=== PATIENT | male | born 1955 | race Caucasian/White ===

== ENCOUNTER 2021-03-07 09:25 | Inpatient (IN) | payer BC, SELFPAY ==
[2021-03-07] VITALS (10 sets, daily range): BP systolic 104–115; BP diastolic 61–71; PULSE 69–100; RESP 17–22; TEMP 36.1–36.8; O2SAT 87–96; BMI 30.8; BMI 30.1
--- NOTE | 2021-03-07 09:43 | EKG12_ITS ---
Test Reason : SOB Blood Pressure : / mmHG Vent. Rate : 097 BPM Atrial Rate : 097 BPM P-R Int : 150 ms QRS Dur : 092 ms QT Int : 338 ms P-R-T Axes : 056 -15 052 degrees QTc Int : 429 ms Normal sinus rhythm Inferior PA, age undetermined, cannot be excluded Confirmed by CAMILLE FLORES, ANGELICA ([id number]), development editor CHRISTIAN MYERS ([id number]) on 03/08/2021 7:54:53 AM Referred By: [email or web address] Confirmed By:ANGELICA OBRIEN MD
--- NOTE | 2021-03-07 09:44 | EX.ED.DYSGE1 ---
HPI History of Present Illness Chief Complaint: Shortness of Breath Informant: patient and spouse/S.O. Onset/Context/Timing Onset: Days Context: Gradual Onset Current Severity: Moderate Maximum Severity: Moderate Narrative Narrative: Patient presents secondary to increasing shortness of breath. He has been sick for the last 6 days. He did test positive for Covid on a home test yesterday. Reports some intermittent chest heaviness along with increasing shortness of breath and cough. He has had diarrhea. Patient is being treated for prostate cancer but is currently only on hormonal therapy, no chemotherapy. [facility] Medical History Diabetes Prostate CA Home Medications abiraterone 1,000 mg PO DAILY 03/07/21 [History Last Taken Unknown] amlodipine 5 mg PO DAILY 03/07/21 [History Last Taken Unknown] ascorbic acid (vitamin C) 1 g PO DAILY 03/07/21 [History Last Taken Unknown] benazepril 40 mg PO DAILY 03/07/21 [History Last Taken Unknown] calcium polycarbophil 1,250 mg PO DAILY 03/07/21 [History Last Taken Unknown] gabapentin 300 mg PO TID 03/07/21 [History Last Taken Unknown] metformin 500 mg PO BID 03/07/21 [History Last Taken Unknown] morphine 15 mg PO TID 03/07/21 [History Last Taken Unknown] oxycodone-acetaminophen [Percocet] 1 tab PO Q6H PRN 03/07/21 [History Last Taken Unknown] polyethylene glycol 3350 [Miralax] 17 g PO DAILY 03/07/21 [History Last Taken Unknown] prednisone 5 mg PO BID 03/07/21 [History Last Taken Unknown] solifenacin 5 mg PO DAILY 03/07/21 [History Last Taken Unknown] tamsulosin 0.4 mg PO DAILY 03/07/21 [History Last Taken Unknown] zolpidem [Ambien] 10 mg PO QHS PRN 03/07/21 [History Last Taken Unknown] Allergy/AdvReac Type Severity Reaction Status Date / Time No Known Allergies Allergy Verified 03/07/21 09:28 Social History Smoking Status: Never smoker ROS ROS ED Constitutional Constitutional ED: Reports chills and fever(s) Eyes Eyes: Denies change in vision ENT ENT ED: Denies sore throat Cardiovascular Cardiovascular: Reports chest pain Respiratory/Chest Respiratory/Chest: Reports cough and dyspnea Gastrointestinal Gastrointestinal: Reports diarrhea and nausea; Denies abdominal pain or vomiting Genitourinary Genitourinary ED: Denies dysuria Musculoskeletal Musculoskeletal: Reports myalgias; Denies back pain Integumentary Denies rash Neurologic Neurologic: Denies headache(s) or weakness Allergic/Immunologic Allergic/Immunologic ED: Denies urticaria EXAM Physical Exam Const Vital Signs: 03/07/21 09:26 03/07/21 09:47 Temperature 97 F L Temperature Source Temporal Pulse Rate 100 Respiratory Rate 22 H Respiratory Effort Normal Non-Labored Respiratory Depth Normal Respiratory Pattern Tachypnea Blood Pressure 115/63 Blood Pressure Mean 80 Pulse Ox 87 Oxygen Delivery Method Room Air Oxygen Flow Rate (L/min) 2 Positive well nourished and well developed General Appearance ED: well developed HEENT Reports normocephalic and head/scalp atraumatic Eyes PERRL and EOMs intact bilaterally Neck supple Chest Wall inspection of chest normal and palpation of chest normal Resp normal respiratory effort and clear to auscultation bilaterally Cardio regular rate and regular rhythm GI non-tender Auscultation: hypoactive bowel sounds Palpation: soft Extremity normal to inspection Neuro oriented x3 and no sensory deficits noted Sensorium / Orientation: alert Motor Exam: strength 5/5 throughout Psych mental status grossly normal Skin no rashes or lesions noted MDM MDM MDM Narrative Medical decision making narrative: Patient had labs ordered along with EKG. CTA chest obtained. Because Covid test was a home test this was repeated here. Lab Data Attestation: I reviewed the patient's lab results. Labs: Laboratory Results - last 24 hr 03/07/21 03/07/21 10:00 10:00 WBC 10.0 RBC 4.15 L Hgb 12.4 L Hct 38.0 L MCV 91.6 MCH 29.9 MCHC 32.6 RDW Std Deviation 45.0 H RDW Coeff of Julisa 13.2 Plt Count 275 MPV 9.4 Immature Gran % (Auto) 0.800 Neut % (Auto) 82.2 H Lymph % (Auto) 10.5 L [place] % (Auto) 6.2 Eos % (Auto) 0.1 Baso % (Auto) 0.2 Absolute Neuts (auto) 8.2 H Absolute Lymphs (auto) 1.05 Nucleated RBC % 0 Sodium 134 L Potassium 4.1 Chloride 100 Carbon Dioxide 26.0 Anion Gap 8 BUN 15 Creatinine 1.04 Estim Creat Clear Calc 74.09 Est GFR (MDRD) Af Amer 92 Est GFR (MDRD) Non-Af 76 BUN/Creatinine Ratio 14.4 Glucose 129 H Calcium 8.5 Total Bilirubin 0.50 Direct Bilirubin 0.19 AST 21 ALT 22 Alkaline Phosphatase 44 L Total Protein 7.5 Albumin 2.9 L Globulin 4.6 H Rapid Covid: Positive Radiography Diagnostic Testing: Clinical Impression(s) from Imaging Studies Chest CTA 03/07/21 10:45 IMPRESSION: No evidence of pulmonary embolism. Diffuse bilateral pulmonary infiltrates as described. 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 Electronically Signed: Mario Monroe MD at 11:19 EST , Service support , EKG Initial EKG: Attestation: I personally reviewed and interpreted this EKG as follows: Interpretation: Sinus Rhythm (Sinus at 97 with no acute ischemia.) Treatment and Re-Evaluation Comments:: Patient's lab work largely unremarkable. CTA reveals no evidence of PE but bilateral infiltrates are noted. He does have evidence of bony mets. Patient had previously been on 2 L and satting 92%. When I went back in the room he was satting 87 on 2 L. He was bumped up to 6 L and is currently satting 90 to 91%. High flow nasal cannula is at bedside if this is needed. I will speak with hospitalist regarding admission. Discharge Plan Triage Chief Complaint: Shortness of Breath ED Provider: Leidy Alberto Dx/Rx/DC Orders Clinical Impression: COVID-19, Pneumonia due to COVID-19 virus, Respiratory failure Prescriptions: No Action metformin 500 mg Tablet 500 mg PO BID RF: 0 ascorbic acid (vitamin C) 1,000 mg Tablet 1 g PO DAILY RF: 0 polyethylene glycol 3350 [Miralax] 17 gram Powder In Packet 17 g PO DAILY RF: 0 prednisone 5 mg Tablet 5 mg PO BID RF: 0 amlodipine 5 mg Tablet 5 mg PO DAILY RF: 0 oxycodone-acetaminophen [Percocet] 5-325 mg Tablet 1 tab PO Q6H PRN (Reason: Pain) RF: 0 tamsulosin 0.4 mg Capsule 0.4 mg PO DAILY RF: 0 calcium polycarbophil 625 mg Tablet 1,250 mg PO DAILY RF: 0 morphine 15 mg Tablet Extended Release 15 mg PO TID RF: 0 zolpidem [Ambien] 10 mg Tablet 10 mg PO QHS PRN (Reason: insomnia) RF: 0 benazepril 40 mg Tablet 40 mg PO DAILY RF: 0 gabapentin 300 mg Tablet 300 mg PO TID RF: 0 solifenacin 5 mg Tablet 5 mg PO DAILY RF: 0 abiraterone 250 mg Tablet 1,000 mg PO DAILY RF: 0 Primary Care Provider: Magdiel Silva Referrals: Magdiel Silva MD [Primary Care Provider] - Disposition Disposition: Acute Care Hospital [facility]
[2021-03-07 10:11] LABS: Absolute Lymphocyte Count 1.05 X10^3/uL (0.83-4.51); Absolute Neutrophil Count 8.2 X10^3/uL (2.0-7.7); Basophil# 0.02 X10^3/uL; Basophil% 0.2 % (0-1); Eosinophil# 0.01 X10^3/uL; Eosinophils% 0.1 % (0-5); Hemoglobin 12.4 g/dL (13.0-16.5); Lymphocyte # 1.05 X10^3/ul (0.83-4.51); Lymphocyte % 10.5 % (19-41); Mean Corp Hgb Conc 32.6 g/dL (32-36); Mean Corpuscular Hgb 29.9 pg (27.0-32.0); Mean Corpuscular Volume 91.6 fL (80-94); Mean Platelet Vol. 9.4 fl (6.2-12.0); Monocyte# 0.62 X10^3/uL; Monocyte% 6.2 % (0-10); NRBC Flagged by Analyzer 0 % (0-5); Neutrophil # 8.22 X10^3/uL (2.7-7.7); Neutrophil % 82.2 % (47-70); Platelet Count 275 K/mm3 (150-450); RBC Distribution Width CV 13.2 % (11.6-14.6); Red Blood Count 4.15 M/mm3 (4.6-6.2)
[2021-03-07 10:31] LABS: AST(SGOT) 21 U/L (15-37); Alanine Aminotransfer ALT/SGPT 22 U/L (16-61); Albumin, Serum 2.9 g/dL (3.2-5.0); Alkaline Phosphatase 44 U/L (45-117); Anion Gap 8 (5-15); BUN 15 mg/dL (7-18); BUN/Creat Ratio 14.4 RATIO (10-20); Bilirubin, Direct 0.19 mg/dL (0.00-0.30); Calcium,Total 8.5 mg/dL (8.5-10.1); Chloride 100 mmol/L (98-107); Creatinine, Serum 1.04 mg/dL (0.70-1.30); EST Glomerular Filtration Rate 76 mL/min (>60); Est Glom Filt Rate - Afr Amer 92 mL/min (>60); Estimated Creatinine Clearance 74.09 ml/min; Globulin 4.6 g/dL (2.2-4.2); Glucose 129 mg/dL (74-106); Potassium 4.1 mmol/L (3.5-5.1); Protein, Total 7.5 g/dL (6.4-8.2); Sodium Level 134 mmol/L (136-145)
[2021-03-07] MEDS: dexAMETHasone 4 MG/ML Vial 6 MG IV (10:31)
--- NOTE | 2021-03-07 10:45 | CT_ITS ---
STUDY: CTA CHEST REASON FOR EXAM: Male, 65 years old. covid, hypoxia RADIATION DOSAGE (If Supplied By Facility): CTDIvol = ( 11.00 ) mGy, DLP = ( 435.03 ) mGycm TECHNIQUE: The examination was performed with the intravenous administration of IV 100mL Isovue-370. Post-processing of the angiographic images was performed, with multiplanar reformation and 3D reconstruction. Individualized dose optimization techniques were used for this CT. COMPARISON: None. FINDINGS: Normal enhancement of the main pulmonary artery and right and left pulmonary arteries. Normal enhancement of the bilateral peripheral pulmonary arteries. There is no demonstrated pulmonary embolism. There is atherosclerotic calcification of the aortic arch with tortuosity. There is no demonstrated aortic dissection. Normal heart and pericardium. There are visualized mediastinal lymph nodes, which are within normal size limits, and with normal morphology. Normal hilar regions. Normal visualized trachea and bronchi. The lungs are well expanded. Diffuse bilateral airspace disease and a preferential peripheral distribution involving both upper and lower lobes worse in the left hemithorax suggestive of pneumonitis associated with Covid. Normal pleura. Normal chest wall structures. There are degenerative changes of thoracic spine. There is evidence of a multiple osteoblastic metastasis involving the thoracic and upper lumbar vertebrae as well as bilateral ribs and the sternum. Normal visualized upper abdomen. CT/CTA Chest W/WO Contrast IMPRESSION: No evidence of pulmonary embolism. Diffuse bilateral pulmonary infiltrates as described. 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 Electronically Signed: Mario Monroe MD at 11:19 EST , Service support ,
--- NOTE | 2021-03-07 12:10 | PCM.HP.STD ---
HPI - General General Date of Admission: 03/07/21 Date of Service: 03/07/21 Chief Complaint: COVID +, worsening symptoms HPI Narrative The patient is a 65 y/o M w/ PMHx: Obesity, Diabetes mellitus type II, HTN, HLD, BPH, Hx Prostate CA on hormonal therapy following with Dr. Scherer with metastatic disease to bone on notable chronic pain regimen, Obesity who presents to the [facility] ED on 03/07/21 with history of onset COVID type symptoms starting the Sunday prior with fever, chills, headache, sore throat, nausea, emesis, loose stools above baseline as he notes he is chronically constipated and takes regimen, cough and dyspnea prompting eventual evaluation with history of only J & J remote vaccination. He notes that the reason he chose the specific vaccine was because it was a one-time dose only. His has also been sick and likely has Covid illness as well. Work-up in the ED include T 97, heart rate 100, BP 115/63, respiratory rate 22, initially 87% on room air with improvement to 90% on 6 L, CBC with WBC 10, hemoglobin 12.4, platelet 275 with left shift, CMP with sodium 134, glucose 129 otherwise not marked appearing aside alk phos 44, CTPA with no evidence of pulmonary embolism with diffuse bilateral pulmonary infiltrates as well as diffuse bilateral osteoblastic metastases of the axial and appendicular skeleton's, rapid Covid antigen positive, blood culture x2 pending per ED. In ED patient ministered Decadron 6 mg IV x1 as well as Tylenol. [facility] Medical History (Updated 03/07/21 @ 13:[address] Deysi Courtney MD) BPH (benign prostatic hyperplasia) Chronic pain syndrome Diabetes mellitus, type 2 HLD (hyperlipidemia) HTN (hypertension) Obesity Prostate cancer metastatic to bone Home Medications abiraterone 1,000 mg PO DAILY 03/07/21 [History Last Taken Unknown] amlodipine 5 mg PO DAILY 03/07/21 [History Last Taken Unknown] ascorbic acid (vitamin C) 1 g PO DAILY 03/07/21 [History Last Taken Unknown] benazepril 40 mg PO DAILY 03/07/21 [History Last Taken Unknown] calcium polycarbophil 1,250 mg PO DAILY 03/07/21 [History Last Taken Unknown] gabapentin 300 mg PO TID 03/07/21 [History Last Taken Unknown] metformin 500 mg PO BID 03/07/21 [History Last Taken Unknown] morphine 15 mg PO TID 03/07/21 [History Last Taken Unknown] oxycodone-acetaminophen [Percocet] 1 tab PO Q6H PRN 03/07/21 [History Last Taken Unknown] polyethylene glycol 3350 [Miralax] 17 g PO DAILY 03/07/21 [History Last Taken Unknown] prednisone 5 mg PO BID 03/07/21 [History Last Taken Unknown] solifenacin 5 mg PO DAILY 03/07/21 [History Last Taken Unknown] tamsulosin 0.4 mg PO DAILY 03/07/21 [History Last Taken Unknown] zolpidem [Ambien] 10 mg PO QHS PRN 03/07/21 [History Last Taken Unknown] Allergy/AdvReac Type Severity Reaction Status Date / Time No Known Allergies Allergy Verified 03/07/21 09:28 Family History (Updated 03/07/21 @ 14:[address] Deysi Courtney MD) Mother Diabetes Father Diabetes Surgical History (Updated 03/07/21 @ 13:[address] Deysi Courtney MD) Hx of umbilical hernia repair Social History (Updated 03/07/21 @ 14:[address] Deysi Courtney MD) household members: spouse Smoking Status: Never smoker alcohol intake: never substance use type: does not use ROS ROS Narrative Admission Review of Systems: CONSTITUTIONAL: No weight loss, + fever, chills, weakness or fatigue. HEENT: + Headache, sore throat. Eyes: No visual loss, blurred vision, double vision or yellow sclerae. Ears, Nose, Throat: No hearing loss, sneezing. SKIN: No rash or itching, lesions, wounds. CARDIOVASCULAR: No chest pain, chest pressure or chest discomfort, palpitations, edema, orthopnea, syncopal events. RESPIRATORY: + shortness of breath, cough, No marked sputum, wheezing, hemoptysis. GASTROINTESTINAL: + anorexia, nausea, vomiting, diarrhea, No abdominal pain, melena, BRBPR. GENITOURINARY: No dysuria, frequency, urgency or retention. NEUROLOGICAL: + headache, No dizziness, syncope, paralysis, ataxia, numbness or tingling in the extremities, focal weakness, change in bowel or bladder control, seizure. MUSCULOSKELETAL: + muscle, back pain, joint pain or stiffness. HEMATOLOGIC: + anemia, bleeding or bruising. LYMPHATICS: No enlarged nodes. No history of splenectomy. PSYCHIATRIC: No history of depression or anxiety. ENDOCRINOLOGIC: No reports of sweating, cold or heat intolerance. No polyuria or polydipsia. ALLERGIES: No history of asthma, hives, eczema or rhinitis. Vital Signs Vital Signs Vital Signs: 03/07/21 09:26 03/07/21 09:47 03/07/21 12:03 Temperature 97 F L Temperature Source Temporal Pulse Rate 100 85 Respiratory Rate 22 H 22 H Respiratory Effort Normal Non-Labored Respiratory Depth Normal Respiratory Pattern Tachypnea Blood Pressure 115/63 113/61 Blood Pressure Mean 80 78 Pulse Ox 87 90 Oxygen Delivery Method Room Air Nasal Cannula Oxygen Flow Rate (L/min) 2 6 Weight Weight: 215 lb Body Mass Index (BMI) 30.8 Physical Exam Narrative Physical Examination: General: Awake, alert, oriented x 3 and cooperative, seated upright in the ED bed, fatigued and ill-appearing, increased respiratory rate, accessory muscle usage noted, evidence of respiratory distress. Skin: Normal color, normal turgor, no icterus, no cyanosis. HEENT: AT/NC, EOMI, PERRLA, moderately dry MM, no carotid bruits or JVD noted. Lungs: Diffusely diminished, greater bases, increased respiratory rate, accessory muscle usage noted, evidence of respiratory distress, no rales, ronchi or wheezing. Heart: Mildly tachycardic with regular rhythm; no gallop, rub audible. Abdomen: Soft, obese, no obvious TTP, unable to discern distention given habitus, distant hyperactive bowel sounds, unable to discern HSM secondary to habitus. Extremities: No cyanosis, clubbing, or edema. Neurological: Patient awake, alert, oriented as noted, cognitive function intact; pupils equally reactive to light and accommodation, cranial nerves II-XII grossly normal, moving all 4 extremities, no focal deficits, strength severely global decrease secondary to acute presentation. Psychiatric: Affect appears fatigued, ill-appearing, respiratory compromise evident, no acute evidence of depressive or anxiety feelings. Results Lab / Micro Data Result Diagrams: 03/07/21 10:00 03/07/21 10:00 Labs: Laboratory Results - last 24 hr 03/07/21 10:00: WBC 10.0, RBC 4.15 L, Hgb 12.4 L, Hct 38.0 L, MCV 91.6, MCH 29.9, MCHC 32.6, RDW Std Deviation 45.0 H, RDW Coeff of Julisa 13.2, Plt Count 275, MPV 9.4, Immature Gran % (Auto) 0.800, Neut % (Auto) 82.2 H, Lymph % (Auto) 10.5 L, [place] % (Auto) 6.2, Eos % (Auto) 0.1, Baso % (Auto) 0.2, Absolute Neuts (auto) 8.2 H, Absolute Lymphs (auto) 1.05, Nucleated RBC % 0 03/07/21 10:00: Sodium 134 L, Potassium 4.1, Chloride 100, Carbon Dioxide 26.0, Anion Gap 8, BUN 15, Creatinine 1.04, Estim Creat Clear Calc 74.09, Est GFR (MDRD) Af Amer 92, Est GFR (MDRD) Non-Af 76, BUN/Creatinine Ratio 14.4, Glucose 129 H, Calcium 8.5, Total Bilirubin 0.50, Direct Bilirubin 0.19, AST 21, ALT 22, Alkaline Phosphatase 44 L, Total Protein 7.5, Albumin 2.9 L, Globulin 4.6 H Micro: Microbiology 03/07/21 10:00 Nasal Secretion SARS-CoV-2 Antigen (Rapid) - Final SARS-CoV-2 (COVID 19) Radiology Impression Chest CTA 03/07/21 10:45 IMPRESSION: No evidence of pulmonary embolism. Diffuse bilateral pulmonary infiltrates as described. 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 Electronically Signed: Mario Monroe MD at 11:19 EST , Service support , Assessment & Plan Assessment/Plan (1) Respiratory failure: QUALIFIERS: Chronicity: acute Respiratory failure complication: hypoxia Qualified Code(s): J96.01 - Acute respiratory failure with hypoxia (2) Pneumonia due to COVID-19 virus: (3) COVID-19: PLAN: The patient is a 65 y/o M w/ PMHx: Obesity, Diabetes mellitus type II, HTN, HLD, BPH, Hx Prostate CA on hormonal therapy following with Dr. Scherer with metastatic disease to bone on notable chronic pain regimen, Obesity who presents to the [facility] ED on 03/07/21 with history of onset COVID type symptoms starting the Sunday prior with fever, chills, headache, sore throat, nausea, emesis, loose stools above baseline as he notes he is chronically constipated and takes regimen, cough and dyspnea prompting eventual evaluation with history of only J & J remote vaccination. #1. Acute Hypoxic Respiratory Failure secondary to Acute Bilateral Pneumonia secondary to Acute Viral Syndrome, COVID-19: Will admit to the [facility] telemetry, patient will need to remain on quarantine through 03/20/21 given presentation with severe COVID PNA, will maintain on oxygen with wean as tolerated to room air, PRN albuterol, HOB, IS parameters w/ pending sputum cultures, respiratory viral panel and urine antigens, will obtain D-dimer, procalcitonin, CRP, CPK, Ferritin, LDH, trop and BNP, continue supportive care including q 2 hour turning including prone given no prone bed availability and judicious hydration, closely monitor for worsening status for ARDS and multiorgan failure, will initiate and continue IV decadron x 10 doses, given presentation will also initiate IV remdesivir but defer to discretion of Infectious disease. If respiratory status worsens and patient requires airvo or BIPAP transition will initiate barcitinib regimen additionally with ID involvement. #2. Prostate CA with metastatic disease to the bone with Chronic pain syndrome: CTPA w/ no evidence of pulmonary embolism, diffuse bilateral pulmonary infiltrates as described, diffuse bilateral osteoblastic metastasis of the axial and appendicular skeletons as described, following w/ Dr. Scherer, on hormonal therapy which will be continued, continue chronic pain medication however did discuss potential decrease or alteration if respiratory status compromised. We will temporarily hold home low-dose steroids as patient is on IV Decadron as noted above #1. #3. Diabetes mellitus type II: Hold oral home regimen, do expect likely elevated blood sugars given use of steroids, ADA diet, accu checks w/ ISS. #4. Hypertension: Continue home regimen including amlodipine, benazepril with hold parameters as needed, PRN hydralazine. #5. Hyperlipidemia: Not on regimen, defer to outpatient. #6. BPH: Continue home flomax regimen. #7. Obesity: Weight loss and lifestyle changes encouraged. #8. DVT prophylaxis: SCDs, lovenox. #9. CODE status: Patient HCPOA is the patient's who is present and living will is currently in place. Discussed CODE status at length including difference between FULL code, DNR-CCA and DNR-CC status. Following discussions about the differences in these status, requested Full Code status. Patient is amenable also to airvo and BIPAP usage. Advanced Care Planning Face to Face Time: 16 minutes. Charges/Coding Visit Charges Inpatient E&M: 76436 Init Hosp L3 Procedures Hospitalists Procedures: 37588 Advncd Care Plan 30 Min
[2021-03-07] MEDS: Acetaminophen 500 MG Tablet 1000 MG PO (12:24)
[2021-03-07 14:44] LABS: D-Dimer Quantitative (DVT/PE) 0.95 FEU/ug/m (0.27-0.49)
[2021-03-07 14:52] LABS: Ferritin 614 ng/mL (26-388); LDH 262 U/L (87-241); Magnesium 2.3 mg/dL (1.6-2.6); Troponin-I HS 10 pg/mL (3.0-78.0)
[2021-03-07 14:59] LABS: Procalcitonin 0.22 ng/mL (0.00-0.09)
[2021-03-07 15:17] LABS: BNP,B-Type NATRIURETIC PEPTIDE 31.8 pg/mL (0-100)
[2021-03-07] MEDS: 0.9% Normal Saline 1,000 ML 100 ML IV (18:29)
[2021-03-07] MEDS: morphine SR 15 MG Tablet PO ×2 (19:00→22:38)
--- NOTE | 2021-03-07 19:00 | PCS.PANDOC ---
PANDEMIC DOCUMENTATION INITIATED: Date: 11/22/2020 Time: 190 Emergency documentation initiated 03/07/21 @ 1900
[2021-03-07 19:15] LABS: Bedside Glucose 226 mg/dL (70-110)
[2021-03-07] MEDS: Gabapentin 300 MG Capsule PO (22:38)
[2021-03-07] MEDS: Famotidine 20 MG Tablet PO (22:38)
[2021-03-07] MEDS: Enoxaparin 30 MG/0.3 ML Syringe SC (22:38)
[2021-03-07] MEDS: MELATONIN 3 MG TABLET PO (22:40)
[2021-03-07 22:50] LABS: Bedside Glucose 197 mg/dL (70-110)
[2021-03-08] VITALS (11 sets, daily range): BP systolic 114–125; BP diastolic 67–79; PULSE 76–92; RESP 16–18; TEMP 36.1–36.8; O2SAT 92–96
[2021-03-08] MEDS: morphine SR 15 MG Tablet PO ×3 (04:40→22:16)
[2021-03-08] MEDS: Gabapentin 300 MG Capsule PO ×3 (04:41→22:16)
--- NOTE | 2021-03-08 06:22 | PCM.PN.HOSP ---
Subjective Subjective Patient overnight with approximate 4 L nasal cannula usage however de-escalating during the day to 2 L nasal cannula. Patient has been up and moving in his room without significant dyspneic symptoms. Patient appearance much improved since initial presentation and he feels as though he is improving. Discussed plan of care which included continued close observation with a.m. oxygenation testing and if he does not desaturate significantly could potentially discharge on oxygen 03/09/2021 which she is amenable to. Patient denies fevers, chills, nausea, emesis, abdominal pain, chest pain. Objective Data Objective Data Vital Signs: Vital Signs Temp Pulse Resp BP Pulse Ox 97.5 F L 80 18 125/79 H 92 03/08/21 03:50 03/08/21 05:10 03/08/21 03:50 03/08/21 03:50 03/08/21 03:50 Oxygen Flow Rate (L/min) 4 Oxygen Delivery Method Nasal Cannula Weight: 210 lb 1.608 oz Body Mass Index (BMI) 30.1 Intake & Output: Intake and Output for Last 24 Hours 03/06/21 03/07/21 03/08/21 23:59 23:59 23:59 Intake Total 250 / 500 1250 / 1250 Balance 250 / 500 1250 / 1250 Lab / Micro Data Result Diagrams: 03/08/21 07:45 03/08/21 07:45 Labs: Laboratory Results - last 24 hr 03/07/21 10:00: WBC 10.0, RBC 4.15 L, Hgb 12.4 L, Hct 38.0 L, MCV 91.6, MCH 29.9, MCHC 32.6, RDW Std Deviation 45.0 H, RDW Coeff of Julisa 13.2, Plt Count 275, MPV 9.4, Immature Gran % (Auto) 0.800, Neut % (Auto) 82.2 H, Lymph % (Auto) 10.5 L, Jenkins % (Auto) 6.2, Eos % (Auto) 0.1, Baso % (Auto) 0.2, Absolute Neuts (auto) 8.2 H, Absolute Lymphs (auto) 1.05, Nucleated RBC % 0 03/07/21 10:00: Sodium 134 L, Potassium 4.1, Chloride 100, Carbon Dioxide 26.0, Anion Gap 8, BUN 15, Creatinine 1.04, Estim Creat Clear Calc 74.09, Est GFR (MDRD) Af Amer 92, Est GFR (MDRD) Non-Af 76, BUN/Creatinine Ratio 14.4, Glucose 129 H, Calcium 8.5, Total Bilirubin 0.50, Direct Bilirubin 0.19, AST 21, ALT 22, Alkaline Phosphatase 44 L, Total Protein 7.5, Albumin 2.9 L, Globulin 4.6 H 03/07/21 14:20: D-Dimer Quant (PE/DVT) 0.95 H* 03/07/21 14:20: Magnesium 2.3, Ferritin 614 H, Lactate Dehydrogenase 262 H, Troponin I High Sens 10, C-React Prot Ext Range 106.00 H 03/07/21 14:20: B-Natriuretic Peptide 31.8 03/07/21 14:20: Procalcitonin 0.22 H 03/07/21 19:10: POC Glucose 226 H 03/07/21 22:33: POC Glucose 197 H Micro: Microbiology 03/07/21 20:55 Urine, Clean Catch Legionella Antigen - Final 03/07/21 20:55 Urine, Clean Catch Streptococcus pneumoniae Antigen (M - Final 03/07/21 19:38 Mucosa - Nasopharyngeal Respiratory Panel (PCR) - Final 03/07/21 10:00 Nasal Secretion SARS-CoV-2 Antigen (Rapid) - Final SARS-CoV-2 (COVID 19) Radiography Diagnostic Testing: Radiology Impression Chest CTA 03/07/21 10:45 IMPRESSION: No evidence of pulmonary embolism. Diffuse bilateral pulmonary infiltrates as described. 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 Electronically Signed: Mario Monroe MD at 11:19 EST , Service support , Physical Exam Narrative Physical Examination: General: Awake, alert, oriented x 3 and cooperative, seated upright in the medical surgical chair, markedly improved since day prior, no evidence of respiratory distress. Skin: Normal color, normal turgor, no icterus, no cyanosis. HEENT: AT/NC, EOMI, PERRLA, improved MMM. Lungs: Remain diffusely diminished, greater bases, respiratory rate normalized, no evidence of any distress, no rales, ronchi or wheezing. Heart: Improved, regular rate with regular rhythm; no gallop, rub audible. Abdomen: Soft, obese, NTTP, unable to discern distention given habitus, normalized BS. Extremities: No cyanosis, clubbing, or edema. Neurological: Patient awake, alert, oriented as noted, cognitive function intact; pupils equally reactive to light and accommodation, cranial nerves II-XII grossly normal, moving all 4 extremities, no focal deficits, strength improved, moderately globally decreased secondary to acute presentation. Psychiatric: Affect appears less fatigued, respiratory distress resolved,no acute evidence of depressive or anxiety feelings. Assessment & Plan Assessment/Plan (1) Respiratory failure: QUALIFIERS: Chronicity: acute Respiratory failure complication: hypoxia Qualified Code(s): J96.01 - Acute respiratory failure with hypoxia (2) Pneumonia due to COVID-19 virus: (3) COVID-19: PLAN: The patient is a 65 y/o M w/ PMHx: Obesity, Diabetes mellitus type II, HTN, HLD, BPH, Hx Prostate CA on hormonal therapy following with Dr. Scherer with metastatic disease to bone on notable chronic pain regimen, Obesity who presents to the [facility] ED on 03/07/21 with history of onset COVID type symptoms starting the Sunday prior with fever, chills, headache, sore throat, nausea, emesis, loose stools above baseline as he notes he is chronically constipated and takes regimen, cough and dyspnea prompting eventual evaluation with history of only J & J remote vaccination. #1. Acute Hypoxic Respiratory Failure secondary to Acute Bilateral Pneumonia secondary to Acute Viral Syndrome, COVID-19: Patient met his medical surgical floor on telemetry, patient will need to remain on quarantine through 03/20/21 given presentation with severe COVID PNA, will maintain on oxygen with wean as tolerated to room air, PRN albuterol, HOB, IS parameters w/ pending sputum cultures, negative urine antigens, negative respiratory viral panel, blood culture x2 pending per ED, Covid inflammatory panel obtained, continue supportive care including q 2 hour turning including prone given no prone bed availability and judicious hydration, closely monitor for worsening status for ARDS and multiorgan failure, patient initiated and continued on IV decadron x 10 doses, given presentation also initiated and continued on IV remdesivir but defer to discretion of Infectious disease. We will plan 03/09/2021 early a.m. oxygenation trial and if remains improved with no significant increase with ambulation may consider discharge to home. #2. Prostate CA with metastatic disease to the bone with Chronic pain syndrome: CTPA w/ no evidence of pulmonary embolism, diffuse bilateral pulmonary infiltrates as described, diffuse bilateral osteoblastic metastasis of the axial and appendicular skeletons as described, following w/ Dr. Scherer, on hormonal therapy which will be continued, continue chronic pain medication however did discuss potential decrease or alteration if respiratory status compromised. We will temporarily hold home low-dose steroids as patient is on IV Decadron as noted above #1. Will need instruct patient upon discharge to resume his oral home low-dose steroids once he is completed Decadron regimen. #3. Diabetes mellitus type II: Hold oral home regimen, do expect likely elevated blood sugars given use of steroids, ADA diet, accu checks w/ ISS. #4. Hypertension: Continue home regimen including amlodipine, benazepril with hold parameters as needed, PRN hydralazine. #5. Hyperlipidemia: Not on regimen, defer to outpatient. #6. BPH: Continue home flomax regimen. #7. Obesity: Weight loss and lifestyle changes encouraged. #8. DVT prophylaxis: SCDs, lovenox. #9. CODE status: Patient HCPSILVA is the patient's who is present and living will is currently in place. Full Code status. Charges/Coding Visit Charges Inpatient E&M: 89274 Subs Hosp L2
[2021-03-08 06:25] LABS: Bedside Glucose 160 mg/dL (70-110)
[2021-03-08 08:18] LABS: Absolute Lymphocyte Count 1.02 X10^3/uL (0.83-4.51); Absolute Neutrophil Count 4.7 X10^3/uL (2.0-7.7); Basophil# 0.01 X10^3/uL; Basophil% 0.2 % (0-1); Hematocrit 35.1 % (40-54); Hemoglobin 11.7 g/dL (13.0-16.5); Lymphocyte # 1.02 X10^3/ul (0.83-4.51); Lymphocyte % 15.5 % (19-41); Mean Corp Hgb Conc 33.3 g/dL (32-36); Mean Corpuscular Hgb 30.2 pg (27.0-32.0); Mean Corpuscular Volume 90.7 fL (80-94); Mean Platelet Vol. 9.8 fl (6.2-12.0); Monocyte% 12.1 % (0-10); NRBC Flagged by Analyzer 0 % (0-5); Neutrophil # 4.72 X10^3/uL (2.7-7.7); Neutrophil % 71.4 % (47-70); Platelet Count 281 K/mm3 (150-450); RBC Distribution Width CV 13.2 % (11.6-14.6); RBC Distribution Width SD 44.4 fl (35.1-43.9); Red Blood Count 3.87 M/mm3 (4.6-6.2); White Blood Count 6.6 K/mm3 (4.4-11.0)
[2021-03-08 08:54] LABS: ALB/GLOB Ratio 0.6 RATIO (0.9-2.4); AST(SGOT) 18 U/L (15-37); Alanine Aminotransfer ALT/SGPT 17 U/L (16-61); Albumin, Serum 2.5 g/dL (3.2-5.0); Alkaline Phosphatase 37 U/L (45-117); Anion Gap 9 (5-15); BUN 17 mg/dL (7-18); BUN/Creat Ratio 26.5 RATIO (10-20); Calcium,Total 8.3 mg/dL (8.5-10.1); Chloride 107 mmol/L (98-107); Creatinine, Serum 0.64 mg/dL (0.70-1.30); EST Glomerular Filtration Rate 133 mL/min (>60); Est Glom Filt Rate - Afr Amer 161 mL/min (>60); Globulin 4.3 g/dL (2.2-4.2); Glucose 146 mg/dL (74-106); Potassium 4.2 mmol/L (3.5-5.1); Protein, Total 6.8 g/dL (6.4-8.2); Sodium Level 138 mmol/L (136-145)
[2021-03-08] MEDS: 0.9% Saline Lock 10 ML Syringe IV (09:28)
[2021-03-08] MEDS: dexAMETHasone 10 MG/ML Vial 6 MG IV (09:28)
[2021-03-08] MEDS: amLODIPine 5 MG Tablet PO (09:29)
[2021-03-08] MEDS: Ascorbic Acid 500 MG Tablet 1000 MG PO (09:29)
[2021-03-08] MEDS: Lisinopril 40 MG Tablet PO (09:29)
[2021-03-08] MEDS: Tolterodine Tartrate 2 MG CAP.SA PO (09:29)
[2021-03-08] MEDS: Famotidine 20 MG Tablet PO ×2 (09:29→22:16)
[2021-03-08] MEDS: Enoxaparin 30 MG/0.3 ML Syringe SC ×2 (09:34→22:10)
--- NOTE | 2021-03-08 10:50 | CASEMGMT ---
MARQUES FAM Assessment: Face to Face with pt for initial transition planning/care coordination assessment. MARQUES FAM introduced self and role at [facility], pt voices understanding and consents to assessment. Pt is A/O x4 and answers all questions appropriately at this time. Pt sitting up in chair with O2 on in no distress. Care providers, pharmacy, and demographics verified/updated. Admitting Dx: acute resp failure, covid pna PCP:Ricardo Specialists: Niesha, onc; Ksenia Aden uro Preferred Pharmacy: [facility] Insurance: [place] Prescription Benefit: yes LW/HPOA: Pt states he has a LW/ DPOA. His DPOA is his Mahnaz Hines. He is aware that this is not on file at [facility] and it may be brought in to be scanned into his chart. LNOK: Mahnaz Hines, Living Arrangements: Pt lives with and stepdaughter in a single story house with no steps to enter. Pt stepdtr is a temporary situation and she has her own bedroom and bathroom. Pt reports being I in ADL's and denies concerns at home. Transportation: Pt drives self and denies concerns with transportation. DME/HHC/SNF: Pt has a cane and walker at home but does not use either. He denies previous HHC. He is current with [facility]. A nurse comes out monthly to check his vitals and count pain meds. Pt denies SNF stays. Pt was first tested for COVID with a home test and retested at [facility]. Pt is also positive for COVID but his stepdtr is not. Pt has family who can provide groceries and supplies. Discussed local in network DME companies should pt need home O2, pt has no preference. Pt states no concerns with going home at time of dc. Pt states no further concerns/needs. CM to follow. Advised pt to ask CM if any further question/concerns/needs arise, voices understanding. Pt Goal: Home Plan: Home
[2021-03-08] MEDS: Insulin Lispro 100 UNIT/ML INSULN.PEN SC ×3 (11:55→22:22)
[2021-03-08 12:20] LABS: Bedside Glucose 170 mg/dL (70-110)
[2021-03-08 16:41] LABS: Bedside Glucose 244 mg/dL (70-110)
[2021-03-08] MEDS: ABIRATERONE ACETATE 250 MG TABLET 1000 MG PO (22:23)
[2021-03-08] MEDS: MELATONIN 3 MG TABLET PO (22:24)
[2021-03-08 23:40] LABS: Bedside Glucose 196 mg/dL (70-110)
[2021-03-09] MEDS: Senna/Docusate Sodium 1 Tablet 2 TABLET PO (01:45)
[2021-03-09] MEDS: Zolpidem Tartrate 5 MG Tablet PO (01:45)
[2021-03-09 01:46] VITALS: BP 127/79; PULSE 84; RESP 18; TEMP 36.2; O2SAT 95
[2021-03-09 03:00] VITALS: PULSE 73
[2021-03-09] MEDS: Gabapentin 300 MG Capsule PO (06:12)
[2021-03-09] MEDS: morphine SR 15 MG Tablet PO (06:12)
[2021-03-09] MEDS: Insulin Lispro 100 UNIT/ML INSULN.PEN SC (06:13)
[2021-03-09 06:15] VITALS: O2SAT 92; O2SAT 94; O2SAT 95
[2021-03-09 06:30] LABS: Bedside Glucose 164 mg/dL (70-110)
[2021-03-09 06:42] LABS: Absolute Lymphocyte Count 1.04 X10^3/uL (0.83-4.51); Absolute Neutrophil Count 6.1 X10^3/uL (2.0-7.7); Basophil# 0.01 X10^3/uL; Basophil% 0.1 % (0-1); Hematocrit 36.4 % (40-54); Hemoglobin 12.1 g/dL (13.0-16.5); Lymphocyte # 1.04 X10^3/ul (0.83-4.51); Lymphocyte % 12.4 % (19-41); Mean Corp Hgb Conc 33.2 g/dL (32-36); Mean Corpuscular Hgb 29.9 pg (27.0-32.0); Mean Corpuscular Volume 89.9 fL (80-94); Mean Platelet Vol. 9.8 fl (6.2-12.0); Monocyte# 1.15 X10^3/uL; Monocyte% 13.8 % (0-10); NRBC Flagged by Analyzer 0 % (0-5); Neutrophil # 6.05 X10^3/uL (2.7-7.7); Neutrophil % 72.4 % (47-70); Platelet Count 380 K/mm3 (150-450); RBC Distribution Width CV 13.2 % (11.6-14.6); RBC Distribution Width SD 43.5 fl (35.1-43.9); Red Blood Count 4.05 M/mm3 (4.6-6.2); White Blood Count 8.4 K/mm3 (4.4-11.0)
[2021-03-09 06:59] VITALS: PULSE 82
[2021-03-09 07:10] LABS: ALB/GLOB Ratio 0.6 RATIO (0.9-2.4); AST(SGOT) 12 U/L (15-37); Alanine Aminotransfer ALT/SGPT 19 U/L (16-61); Albumin, Serum 2.7 g/dL (3.2-5.0); Alkaline Phosphatase 41 U/L (45-117); Anion Gap 8 (5-15); BUN 22 mg/dL (7-18); BUN/Creat Ratio 28.6 RATIO (10-20); Calcium,Total 8.4 mg/dL (8.5-10.1); Chloride 108 mmol/L (98-107); Creatinine, Serum 0.77 mg/dL (0.70-1.30); EST Glomerular Filtration Rate 108 mL/min (>60); Est Glom Filt Rate - Afr Amer 131 mL/min (>60); Estimated Creatinine Clearance 100.07 ml/min; Globulin 4.4 g/dL (2.2-4.2); Glucose 168 mg/dL (74-106); Potassium 3.9 mmol/L (3.5-5.1); Protein, Total 7.1 g/dL (6.4-8.2); Sodium Level 140 mmol/L (136-145)
--- NOTE | 2021-03-09 08:38 | DS.PCM_ITS ---
Providers Date of Admission: 03/07/21 Primary Care Physician: Dr. Magdiel Silva MD Reason For Visit: ACUTE RESP FAILURE, COVID PNA Diagnosis Discharge Diagnosis (1) Respiratory failure: Status: Acute Code(s): J96.90 - Respiratory failure, unspecified, unspecified whether with hypoxia or hypercapnia Qualifiers: Chronicity: acute Respiratory failure complication: hypoxia Qualified Code(s): J96.01 - Acute respiratory failure with hypoxia (2) Pneumonia due to COVID-19 virus: Status: Acute Code(s): U07.1 - COVID-19; J12.82 - Pneumonia due to coronavirus disease 2019 (3) COVID-19: Status: Acute Code(s): U07.1 - COVID-19 Medications at Discharge Home Medications abiraterone 1,000 mg PO DAILY 03/07/21 amlodipine 5 mg PO DAILY 03/07/21 ascorbic acid (vitamin C) 1 g PO DAILY 03/07/21 benazepril 40 mg PO DAILY 03/07/21 calcium polycarbophil 1,250 mg PO DAILY 03/07/21 gabapentin 300 mg PO TID 03/07/21 metformin 500 mg PO BID 03/07/21 morphine 15 mg PO TID 03/07/21 oxycodone-acetaminophen [Percocet] 1 tab PO Q6H PRN 03/07/21 polyethylene glycol 3350 [Miralax] 17 g PO DAILY 03/07/21 prednisone 5 mg PO BID 03/07/21 solifenacin 5 mg PO DAILY 03/07/21 zolpidem [Ambien] 10 mg PO QHS PRN 03/07/21 aspirin 81 mg PO DAILY 14 Days #14 tab 03/09/21 dexamethasone [Decadron] 6 mg PO DAILY 8 Days #8 tab 03/09/21 melatonin 10 mg PO QHS 20 Days #20 cap 03/09/21 pantoprazole [Protonix] 20 mg PO DAILY 14 Days #14 tab 03/09/21 Hospital Course Operations None Procedures EKG Summary of Care Provided Minutes Spent on Discharge: 35 Hospital Course: DISCHARGE NOTE: Discharge Diagnoses: #1. Acute Hypoxic Respiratory Failure secondary to Acute Bilateral Pneumonia secondary to Acute Viral Syndrome, COVID-19 #2. Prostate CA with metastatic disease to the bone with Chronic pain syndrome #3. Diabetes mellitus type II #4. Hypertension #5. Hyperlipidemia #6. BPH #7. Obesity Discharge Summary: The patient is a 65 y/o M w/ PMHx: Obesity, Diabetes mellitus type II, HTN, HLD, BPH, Hx Prostate CA on hormonal therapy following with Dr. Scherer with metastatic disease to bone on notable chronic pain regimen, Obesity who presented to the [facility] ED on 03/07/21 with history of onset COVID type symptoms starting the Sunday prior with fever, chills, headache, sore throat, nausea, emesis, loose stools above baseline as he notes he is chronically constipated and takes regimen, cough and dyspnea prompting eventual evaluation with history of only J & J remote vaccination. Patient admitted to medical surgical floor on telemetry, with continued planned quarantine through 03/20/21 given presentation with severe COVID PNA, maintained initially on significant levels of oxygen with evidence of respiratory failure/distress upon initial presentation however through admission significantly improved with de-escalation off of oxygen, negative urine antigens, negative respiratory viral panel, Covid inflammatory panel obtained, continue supportive care including q 2 hour turning including prone given no prone bed availability and judicious hydration, closely monitor for worsening status for ARDS and multiorgan failure, patient initiated and continued on IV decadron x 10 doses, given presentation also initiated and continued on IV remdesivir. Of note CTPA w/ no evidence of pulmonary embolism, diffuse bilateral pulmonary infiltrates, known already diffuse bilateral osteoblastic metastasis of the axial and appendicular skeleton s as described, following w/ Dr. Scherer, on hormonal therapy which was continued, continued chronic pain medication however did discuss potential decrease or alteration if respiratory status compromised. Temporarily held patient oral low-dose steroids and recommended restarting these following completion of patient's oral Decadron regimen. Given significant clinical improvement following 03/09/2021 AM oxygenation trial patient was discharged on Decadron therapy with recommended hold temporarily on his low-dose oral prednisone regimen to completion, added PPI given history and patient recommended to continue at least baby aspirin x 2 weeks given acute presentation of mildly elevated dimer. Recommended patient follow-up with his primary care physician in addition to continue routine follow-up with oncology. Discharge Time: > 35 Minutes DAY OF DISCHARGE PROGRESS NOTE: Subjective: Patient without acute event overnight per self and nursing report. Patient successfully weaned off of nasal cannula and a.m. oxygenation trial with no further oxygen needs. Patient denies fever, chills, nausea, emesis, abdominal pain, chest pain or worsened or recurrent dyspnea. Patient agreeable to discharge to home with strong recommendations for continued plan for booster vaccination to which patient is amenable. Patient will be discharged with follow-up with primary care physician within 3-5 days. Objective: T 98, heart rate 96, BP 111/63, respiratory rate 18, 96% room air. Physical Examination: General: Awake, alert, oriented x 3 and cooperative, seated upright in the medical surgical chair, significantly improved, off oxygen, and ambulation trial with discontinuation of oxygen needs. Skin: Normal color, normal turgor, no icterus, no cyanosis. HEENT: AT/NC, EOMI, PERRLA, MMM. Lungs: Remain diffusely diminished, greater bases, respiratory rate normalized, no evidence of any distress, no rales, ronchi or wheezing. Heart: Improved, regular rate with regular rhythm; no gallop, rub audible. Abdomen: Soft, obese, NTTP, no marked distention, normalized BS. Extremities: No cyanosis, clubbing, or edema. Neurological: Patient awake, alert, oriented as noted, cognitive function intact ; pupils equally reactive to light and accommodation, cranial nerves II-XII grossly normal, moving all 4 extremities, no focal deficits, strength improved, mildly to moderately globally decreased secondary to acute presentation. Psychiatric: Affect appears improved, no evidence of any respiratory distress, no acute evidence of depressive or anxiety feelings. Assessment and Plan: Please see hospital summary above. Weight / BMI Weight Weight: 207 lb 14.334 oz Body Mass Index (BMI) 30.1 ABG / Lab / Microbiology Data Result Diagrams: 03/09/21 06:10 03/09/21 06:10 Laboratory: Laboratory Results - last 24 hr 03/08/21 07:45: Sodium 138, Potassium 4.2, Chloride 107, Carbon Dioxide 22.0, Anion Gap 9, BUN 17, Creatinine 0.64 L, Estim Creat Clear Calc 120.40, Est GFR (MDRD) Af Amer 161, Est GFR (MDRD) Non-Af 133, BUN/Creatinine Ratio 26.5 H, Glucose 146 H, Calcium 8.3 L, Total Bilirubin 0.30, AST 18, ALT 17, Alkaline Phosphatase 37 L, Total Protein 6.8, Albumin 2.5 L, Globulin 4.3 H, Albumin/Globulin Ratio 0.6 L 03/08/21 11:51: POC Glucose 170 H 03/08/21 16:24: POC Glucose 244 H 03/08/21 22:09: POC Glucose 196 H 03/09/21 06:10: WBC 8.4, RBC 4.05 L, Hgb 12.1 L, Hct 36.4 L, MCV 89.9, MCH 29.9, MCHC 33.2, RDW Std Deviation 43.5, RDW Coeff of Julisa 13.2, Plt Count 380, MPV 9.8, Immature Gran % (Auto) 1.300 H, Neut % (Auto) 72.4 H, Lymph % (Auto) 12.4 L , Clarke % (Auto) 13.8 H, Eos % (Auto) 0.0, Baso % (Auto) 0.1, Absolute Neuts (auto) 6.1, Absolute Lymphs (auto) 1.04, Nucleated RBC % 0 03/09/21 06:10: Sodium 140, Potassium 3.9, Chloride 108 H, Carbon Dioxide 24.0, Anion Gap 8, BUN 22 H, Creatinine 0.77, Estim Creat Clear Calc 100.07, Est GFR (MDRD) Af Amer 131, Est GFR (MDRD) Non-Af 108, BUN/Creatinine Ratio 28.6 H, Glucose 168 H, Calcium 8.4 L, Total Bilirubin 0.30, AST 12 L, ALT 19, Alkaline Phosphatase 41 L, Total Protein 7.1, Albumin 2.7 L, Globulin 4.4 H, Albumin/Globulin Ratio 0.6 L 03/09/21 06:11: POC Glucose 164 H Microbiology: Microbiology 03/08/21 04:20 Sputum, Expectorated/Coughed Gram Stain - Final 03/07/21 20:55 Urine, Clean Catch Legionella Antigen - Final 03/07/21 20:55 Urine, Clean Catch Streptococcus pneumoniae Antigen (M - Final 03/07/21 19:38 Mucosa - Nasopharyngeal Respiratory Panel (PCR) - Final 03/07/21 10:00 Nasal Secretion SARS-CoV-2 Antigen (Rapid) - Final SARS-CoV-2 (COVID 19) D/C Instructions Discharge Diet: 1800 Calorie Control Diet Additional Activity Instructions: REMAIN IN COVID QUARANTINE THROUGH 03/20/21. Call your doctor if you observe: Fever of 101 or Higher, Shortness of breath, Chest pain and Calf discomfort Meaningful Use Info Meaningful Use Diagnoses (Choose all that apply): None applicable Discharge Plan Admission Admit Date/Time: 03/07/21 12:14 Primary Reason for Your Visit: Acute Hypoxic Respiratory Failure, COVID BL PNA Attending Provider: Deysi Courtney Primary Care Provider: Magdiel Silva Instructions Patient Instructions: Coronavirus Disease 2019 (COVID-19): Overview, Coronavirus Disease 2019 (COVID-19): Caring for Yourself or Others, COVID-19: Lying in a Prone Position (Proning), Caring for Someone Who Has COVID-19, Disinfecting Your Home of COVID-19 Additional Instructions / Restrictions: MAINTAIN IN COVID QUARANTINE UNTIL 03/20/21. Discharge Orders/Prescriptions Prescriptions: New dexamethasone [Decadron] 6 mg tablet 6 mg PO DAILY 8 Days Qty: 8 RF: 0 melatonin 10 mg capsule 10 mg PO QHS 20 Days Qty: 20 RF: 0 aspirin 81 mg tablet,delayed release (DR/EC) 81 mg PO DAILY 14 Days Qty: 14 RF: 0 pantoprazole [Protonix] 20 mg tablet,delayed release (DR/EC) 20 mg PO DAILY 14 Days Qty: 14 RF: 0 Continued ascorbic acid (vitamin C) 1,000 mg Tablet 1 g PO DAILY RF: 0 polyethylene glycol 3350 [Miralax] 17 gram Powder In Packet 17 g PO DAILY RF: 0 amlodipine 5 mg Tablet 5 mg PO DAILY RF: 0 oxycodone-acetaminophen [Percocet] 5-325 mg Tablet 1 tab PO Q6H PRN (Reason: Pain) RF: 0 calcium polycarbophil 625 mg Tablet 1,250 mg PO DAILY RF: 0 morphine 15 mg Tablet Extended Release 15 mg PO TID RF: 0 benazepril 40 mg Tablet 40 mg PO DAILY RF: 0 gabapentin 300 mg Tablet 300 mg PO TID RF: 0 solifenacin 5 mg Tablet 5 mg PO DAILY RF: 0 abiraterone 250 mg Tablet 1,000 mg PO DAILY RF: 0 Held metformin 500 mg Tablet 500 mg PO BID RF: 0 Hold Instructions: Resume on 03/10/21. Please hold given recent CT with contrast. prednisone 5 mg Tablet 5 mg PO BID RF: 0 Hold Instructions: Resume on 03/18/21. Restart have completion decadron therapy. zolpidem [Ambien] 10 mg Tablet 10 mg PO QHS PRN (Reason: insomnia) RF: 0 Hold Instructions: Resume on 03/28/21. Recommend continued hold on ambien given acute COVID pneumonia. Please take the melatonin in the interim. Referrals / Follow Up: Magdiel Silva MD [Primary Care Provider] - (Follow-up 3-5 days. Call earlier if concerns.) Disposition Disposition (needs filled in before D/C Order can be placed): Home, Self Care Charges/Coding Visit Charges Inpatient E&M: 23342 Disch Hosp
[2021-03-09] MEDS: Ascorbic Acid 500 MG Tablet 1000 MG PO (09:10)
[2021-03-09] MEDS: Tolterodine Tartrate 2 MG CAP.SA PO (09:10)
[2021-03-09] MEDS: Famotidine 20 MG Tablet PO (09:10)
[2021-03-09] MEDS: Enoxaparin 30 MG/0.3 ML Syringe SC (09:10)
[2021-03-09] MEDS: Lisinopril 40 MG Tablet PO (09:10)
[2021-03-09] MEDS: dexAMETHasone 10 MG/ML Vial 6 MG IV (09:10)
[2021-03-09] MEDS: amLODIPine 5 MG Tablet PO (09:10)
[2021-03-09 09:15] VITALS: BP 111/63; PULSE 96; RESP 18; TEMP 36.7; O2SAT 96
== END 2021-03-09 10:02 | disposition home or self-care (01) | DRG 177 ==
LOC: ED 11:47 → MS3 15:50
PROVIDERS: Admitting Provider Family Medicine; Emergency Provider Emergency Medicine; PCP Internal Medicine; Visit Provider Family Medicine
DX: U07.1 COVID-19 (principal); J12.82 Pneumonia due to coronavirus disease 2019; J96.01 Acute respiratory failure with hypoxia; C79.51 Secondary malignant neoplasm of bone; Z23 Encounter for immunization; C61 Malignant neoplasm of prostate; G89.4 Chronic pain syndrome; E78.5 Hyperlipidemia, unspecified; I10 Essential (primary) hypertension; E66.9 Obesity, unspecified; N40.0 Benign prostatic hyperplasia without lower urinary tract symptoms; E11.9 Type 2 diabetes mellitus without complications; Z79.899 Other long term (current) drug therapy; Z79.84 Long term (current) use of oral hypoglycemic drugs; Z79.52 Long term (current) use of systemic steroids; Z68.30 Body mass index [BMI] 30.0-30.9, adult
CPT/HCPCS: 36415; 71275; 80048; 80053; 80076; 82728; 82962; 83615; 83735; 83880; 84145; 84484; 85025; 85379; 86140; 87040; 87070; 87205; 87426; 87449; 87633; 93005; 97802; 99251; 99285; J7030; J7050; Q9967; 90686; A4216; G0463